=== PATIENT | female | born 1980 | race African-American/Black ===

== ENCOUNTER 2024-12-16 22:54 | Emergency (ER) | payer OTHER ==
--- OUTSIDE RECORDS SUMMARY | 2024-12-16 22:58 | XMS REPORT | Continuity of Care Document ---
Author Name Unknown Address [address] [facility] [address] [place] [address] [facility] [place] Address [address] [facility] [place] [address] Care Team Providers Care Business Banking Representative Name Role Phone PCP, PATIENT DOES NOT HAVE A Primary Care Physic shirin Unavailable JAMIE PRIETO Attending Clinician Unavailable JAMIE PRIETO Attending Clinician Unavailable Payers Payer Name Policy Type Policy Number Effective Date Expirati on Date Source AETNA POS/AETNA POS II [id number] 2024 00:00:00 Problems Condition Name Condition Details Condition Category Status Onset Date Resolution Date Last Treatment Date Treating Clinician Comments Source Polycystic ovary syndrome Polycystic Ovary Syndrome Problem Active 07-24 00:00: 00 [facility] 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 Hyperglyce vel Due to Type 2 Diabetes Mellitus Problem Active 07-24 00:00: 00 [facility] Morbid obesity Morbid Obesity Problem Active 07-24 00:00: 00 [facility] Anxiety Anxiety Problem Active 07-24 00:00: 00 [facility] Essential hypertensi on Essential Hypertensi on Problem Active 07-24 00:00: 00 [facility] Hypertensi ve disorder Hypertensi ve Disorder Problem Active 07-24 00:00: 00 [facility] Cyst of ovary Cyst of Ovary Problem Active 07-24 00:00: 00 [facility] Dysmenorrh ea Dysmenorrh ea Problem Active 07-24 00:00: 00 [facility] Heartburn Heartburn Problem Active 07-24 00:00: 00 [facility] Allergies, Adverse Reactions, Alerts Allergy Name Allergy Type Status Severity Reaction(s) Onset Date Inactive Date Treating Clinician Comments Source HYDROCHL OROTHIAZ JOSE DRUG INGREDI Active Unknown-Cmnt 07-23 00:00: 00 [facility] DAPAGLIF LOZIN DRUG INGREDI Active Unknown-Cmnt 07-23 00:00: 00 [facility] Medications Ordered Medication Name Filled Medication Name Start Date Stop Date Current Medication? Ordering Clinician Indication Dosage Frequency Signature (SIG) Comments Components Source amlodipine 10 mg tablet Take 1 tablet every day by oral route. amlodipine 10 mg tablet Take 1 tablet every day by oral route. No 1 Q1D amlodipine 10 mg tablet Take 1 tablet every day by oral route. [facility] Baby Aspirin 81 mg chewable tablet Chew 1 tablet every day by oral route. Baby Aspirin 81 mg chewable tablet Chew 1 tablet every day by oral route. No 1 Q1D Baby Aspirin 81 mg chewable tablet Chew 1 tablet every day by oral route. [facility] irbesartan 150 mg tablet Take 1 tablet every day by oral route. irbesartan 150 mg tablet Take 1 tablet every day by oral route. No 1 Q1D irbesartan 150 mg tablet Take 1 tablet every day by oral route. [facility] Ozempic Ozempic No Ozempic P [facility] Vitamin D3 Vitamin D3 No Vitamin D3 [facility] Zituvio 100 mg tablet Take 1 tablet every day by oral route. Zituvio 100 mg tablet Take 1 tablet every day by oral route. No 1 Q1D Zituvio 100 mg tablet Take 1 tablet every day by oral route. [facility] Vital Signs Vital Name Observation Time Observation Value Comments S ource BP Diastolic 2024-07-24 00:00:00 95 mm[Hg] [facility] Height 2024-07-24 00:00:00 63 [in_i] [facility] BMI (Body Mass Index) 2024-07-24 00:00:00 68.2 kg/m2 [facility] BP Systolic 2024-07-24 00:00:00 132 mm[Hg] [facility] Body Weight 2024-07-24 00:00:00 385 [lb_av] [facility] Procedures Procedure Date / Time Performed Performing Clinicia n Source US [facility]INAL 2024-08-08 [facility], screening, digital, bilateral 2024-07-24 00:00:00 [facility] Procedure on Knee 2006-02-11 00:00:00 [facility] Tonsillectomy 1995-02-11 00:00:00 [facility] Encounters Start Date/Time End Date/Time Encounter Type Admission Type Attending [facility] Care Facility Care Department Encounter ID Source 2024-08-08 00:00:00 2024-08-08 00:00:00 Marla Mayes PA: [address], [place] [id number] , Ph. [facility] GC_GCBZW_Kalyn alvarez Sal* [id number] [facility] 2024-08-07 00:00:00 2024-08-07 00:00:00 STEVE Barr: [address], [address], [place] [id number] , Ph. [facility] GC_GCBZW_Kalyn Huang* [id number] [facility] 2024-07-24 00:00:00 2024-07-24 00:00:00 STEVE Barr: [address], [place] [phone] , Ph. [facility] GC_GCBZW_Kalyn Huang* [id number] [facility] 2024-07-23 07:23:00 2024-07-23 07:56:00 Emergency X , [facility]IE [facility] ERT [id number] [facility] Results Test Description Test Time Test Comments Results Result Co mments Source [facility] MedicalInsulin [Units/volume] in Serum or [id number] 00:00:00* Test Item Value Reference Range Interpretation Comme nts insulin (test code = insulin) 54.2 uIU/mL 2.6-24.9 H [facility] Medicaligp, apt HPV,rfx 16/18,[id number] 00:00:00* Test Item Value Reference Range Interpretation Comme nts diagnosis: (test code = diagnosis:) COMMENT specimen adequacy: (test cod e = specimen adequacy:) COMMENT performed by: (test code = p erformed by:) COMMENT QC reviewed by: (test code = QC reviewed by:) COMMENT note: (test code = note:) COMMENT test methodology: (test code = test methodology:) COMMENT HPV aptima (test code = HPV aptima) NEGATIVE negative [facility]achomatis and Neisseria gonorrhoeae rRNA panel - Specimen by YOGESH with probe [id number] 00:00:00* Test Item Value Reference Range Interpretation Comme nts aptima combo 2 swab (CT) (te st code = aptima combo 2 swab (CT)) CT NEG negative aptima combo 2 swab (GC) (te st code = aptima combo 2 swab (GC)) GC NEG negative [facility] vaginal[facility] (swhl) ([id number]) 2024-07-28 00:00:00 * Test Item Value Reference Range Interpretation Comme nts trichomonas vaginalis swab ( test code = trichomonas vaginalis swab) TRICH NEG negative [facility] and total panel [Mass/volume] - Serum or Plasma 2024-07-25 00:00:00* Test Item Value Reference Range Interpretation Comme nts free testosterone (test code = free testosterone) 0.50 NG/dL 0.12-0.64 sex hormone binding globulin (test code = sex hormone binding globulin) 27.10 nmol/L 10.00-57.00 testosterone (test code = testosterone) 24.8 NG/dL 8.4-48.1 [facility] MedicalDehydroepiandrosterone sulfate (DHEA-S) [Mass/volume] in Serum or [id number] 00:00:00* Test Item Value Reference Range Interpretation Comme nts DHEA-S (test code = DHEA-S) 114.0 ug/dL 98.8-340.0 [facility]
[2024-12-17 00:03] LABS: Absolute Lymphocytes (CBC) 2.7 K/uL (0.7-4.9); Hematocrit 41.7 % (36.0-45.0); Hemoglobin 13.4 g/dL (12.0-15.0); MCH 27.5 pg (27.0-35.0); MCHC 32.3 g/dL (32.0-36.0); MCV 85.3 fL (80-100); MPV 8.9 fL (7.6-11.3); Nucleated RBC Absolute Count 0.0 (0-0); Nucleated Red Blood Cells % 0.2 % (0-0); RBC Red Blood Cell Count 4.88 M/uL (3.86-4.86); White Blood Count 7.10 thou/uL (4.3-10.9)
[2024-12-17 00:17] LABS: Anion Gap 10.3 mEq/L (5.0-15.0); BUN Blood Urea Nitrogen 13 mg/dL (7-18); Glucose Level 370 mg/dL (74-106); Potassium 4.3 mEq/L (3.5-5.1); Troponin High Sensitivity 8.9 pg/mL (<58.9)
[2024-12-17 00:18] LABS: NT PRO-BNP < 5 pg/mL (<125)
[2024-12-17 01:26] LABS: D-Dimer 0.969 FEUug/mL (0-0.500); PT Prothrombin Time 11.6 SECONDS (10-13.0); Protime INR 1.03
[2024-12-17] MEDS ORDERED: HYDROCODONE/APAP 5/325 MG TAB ONE (03:05)
--- NOTE | 2024-12-17 04:16 | ER ---
Nurse's Notes [facility] Name: Loren Herrera Age: 44 yrs Sex: Female : 1980 Arrival Date: 12/16/2024 Time: 22:54 Bed 16 Private MD: Diagnosis: Chest pain, unspecified Presentation: 12/16 23:00 Chief complaint: Patient states: I am having chest pain that started 1 week ago. It has jb4 gotten worse since. It starts in my back and radiates to the front. Coronavirus screen: At this time, the client does not indicate any symptoms associated with coronavirus-19. Ebola Screen: No symptoms or risks identified at this time. Initial Sepsis Screen: Does the patient meet any 2 criteria? No. Patient's initial sepsis screen is negative. Does the patient have a suspected source of infection? No. Patient's initial sepsis screen is negative. Risk Assessment: Do you want to hurt yourself or someone else? Patient reports no desire to harm self or others. Onset of symptoms was December 09, 2024. 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 - Infectious Disease History:: Denies. - Social history:: Smoking status: Patient denies any tobacco usage or history of. - Family history:: not pertinent. - Hospitalizations: : No recent hospitalization is reported. Screenin:40 [facility] ED Fall Risk Assessment (Adult) History of falling in the last 3 months, kj2 including since admission No falls in past 3 months (0 pts) Confusion or Disorientation No (0 pts) Intoxicated or Sedated No (0 pts) Impaired Gait No (0 pts) Mobility Assist Device Used No (0 pt) Altered Elimination No (0 pt) Score/Fall Risk Level 0 - 2 = Low Risk Maintained a safe environment, Hourly rounding (assess needs \T\ fall precautionary measures) done. Abuse screen: Denies threats or abuse. Denies injuries from another. Nutritional screening: No deficits noted. Tuberculosis screening: No symptoms or risk factors identified. Assessment: 23:40 General: Appears in no apparent distress. Behavior is cooperative. Pain: Complains of kj2 pain in chest Pain radiates to from and to her back Pain began 1 week ago. Neuro: Level of Consciousness is awake, alert, obeys commands, Oriented to person, place, time, situation. Cardiovascular: Patient's skin is warm and dry. Chest pain began 1 week ago. 12/17 00:00 Reassessment: Patient is alert, oriented x 3, equal unlabored respirations, skin tb4 warm/dry/pink. General: Appears in no apparent distress. Behavior is calm, cooperative. Pain: Denies pain. Neuro: Level of Consciousness is awake, alert, obeys commands, Oriented to person, place, time, situation, Testing Shaking Shipping are equal bilaterally Moves all extremities. Full function Gait is steady, Speech is normal, Facial symmetry appears normal. Cardiovascular: Capillary refill < 3 seconds is brisk in bilateral fingers Chest pain is denied Patient states at this time she has no pain and when she does it only comes when she is laying on her right side and it radiates to the middle of her back. Respiratory: Airway is patent Trachea midline Respiratory effort is even, unlabored, Respiratory pattern is regular, symmetrical. Vital Signs: 12/16 23:00 BP 130 / 96; Pulse 80; Resp 16; Temp 98.1(O); Pulse Ox 96% on R/A; Weight 170.1 kg (R); jb4 Height 5 ft. 3 in. ; Pain 9/10; 23:35 Weight 179.62 kg (M); jb4 12/17 00:10 BP 136 / 75; Pulse 83; Resp 18; Pulse Ox 99% on R/A; Weight 170.1 kg; Height 5 ft. 3 tb4 in. ; Pain 0/10; 01:30 BP 115 / 59; Pulse 85; Resp 18; Pulse Ox 100% on R/A; Pain 0/10; tb4 02:30 BP 117 / 75; Pulse 64; Resp 18; Pulse Ox 97% on R/A; Pain 6/10; tb4 03:45 BP 105 / 62; Pulse 78; Resp 20; Pulse Ox 97% on R/A; Pain 0/10; tb4 00:10 Body Mass Index 66.43 (170.10 kg, 160.02 cm) tb4 12/16 23:00 Pain Scale: Adult jb4 12/17 00:10 Pain Scale: Adult tb4 01:30 Pain Scale: Adult tb4 02:30 Pain Scale: Adult tb4 03:45 Pain Scale: Adult tb4 ED Course: 12/16 22:56 Patient arrived in ED. jj6 22:59 Gerber Narayan MD is Attending Physician. rn 23:03 Triage completed. jb4 23:05 Arm band placed on right wrist. jb4 23:17 Malissa Rodriguez, HARPER is Primary Nurse. kj2 23:31 XRAY Chest (1 view) In Process Unspecified. EDMS 23:40 Patient has correct armband on for positive identification. Bed in low position. Call kj2 light in reach. Provided Education on: call light. Client placed on continuous cardiac and pulse oximetry monitoring. NIBP monitoring applied. 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 Pulse ox on. NIBP on. 23:51 Inserted saline lock: 20 gauge in right forearm, using aseptic technique. Blood kj2 collected. Flushed with 10 mL NS. 12/17 00:00 Patient maintains SpO2 saturation greater than 95% on room air. kj2 00:01 EKG done, by ED staff, reviewed by Gerber Narayan MD. hw 02:52 CT Chest For PE Angio In Process Unspecified. EDMS 03:45 No provider procedures requiring assistance completed. IV discontinued, intact, tb4 bleeding controlled, No redness/swelling at site. Pressure dressing applied. Administered Medications: 03:09 Drug: HYDROcodone-acetaminophen PO 5 mg-325 mg 1 tabs PO once Route: PO; tb4 04:38 Follow up: Response: No adverse reaction; Pain is decreased; RASS: Alert and Calm (0) tb4 Medication: 00:10 VIS not applicable for this client. tb4 Outcome: 04:16 Discharge ordered by . rn 04:36 Discharged to home ambulatory, tb4 04:36 Condition: stable 04:36 Discharge instructions given to patient, Instructed on discharge instructions, follow up and referral plans. Demonstrated understanding of instructions, follow-up care, 04:38 Patient left the ED. tb4 Signatures: Dispatcher [employer] EDMS Gerber Narayan MD MD rn Bryson, James, RN RN jb4 Dara Weinberg jj6 Malissa Rodriguez, RN RN kj2 Jennie Andersen Terri, RN RN tb4 Corrections: (The following items were deleted from the chart) 12/16 23:05 23:00 Pulse 80bpm; Resp 16bpm; Pulse Ox 96% RA; Temp 98.1F Oral; 170.1 kg Reported; jb4 Height 5 ft. 3 in.; BMI: 66.4; Pain 9/10, Adult; jb4 23:05 23:03 Allergies: No Known Allergies; jb4 jb4
--- NOTE | 2024-12-17 04:16 | EDPHYS ---
Physician Documentation [facility] Name: Loren Herrera Age: 44 yrs Sex: Female : 1980 Arrival Date: 12/16/2024 Time: 22:54 Bed 16 Private MD: ED Physician Gerber Narayan HPI: 12/16 23:54 This 44 yrs old Black Female presents to ER via Ambulatory with complaints of Chest rn Pain, Shortness Of Breath. 23:54 Patient reports chest pain and back pain and shortness of breath. Has been happening rn for 1 week, intermittent. No history of DVT or PE. Has a family history of idiopathic cardiomyopathy. Patient denies swelling. No abdominal pain. No hemoptysis. Patient reports pain is positional and worse when she lays on 1 side compared to the other. Patient has recently started working out and thinks could be strain.. 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 - Infectious Disease History:: Denies. - Social history:: Smoking status: Patient denies any tobacco usage or history of. - Family history:: not pertinent. - Hospitalizations: : No recent hospitalization is reported. ROS: 23:54 Constitutional: Negative for fever, chills, and weight loss, Cardiovascular: Positive rn for chest pain Respiratory: Positive for shortness of breath Abdomen/GI: Negative for abdominal pain, nausea, vomiting, diarrhea, and constipation, MS/Extremity: Negative for injury and deformity, Skin: Negative for injury, rash, and discoloration, Neuro: Negative for headache, weakness, numbness, tingling, and seizure, Exam: 23:54 Constitutional: This is a well developed, well nourished patient who is awake, alert, rn and in no acute distress. Head/Face: Normocephalic, atraumatic. Cardiovascular: Regular rate and rhythm. No pulse deficits. Respiratory: Speaking full sentences, unlabored. No increased work of breathing, no retractions or nasal flaring. Abdomen/GI: Soft, non-tender MS/ Extremity: Pulses equal, no cyanosis. Neurovascular intact. Full, normal range of motion. Equal circumference. Neuro: Awake and alert, GCS 15 12/17 00:14 ECG was reviewed by the Attending Physician. rn Vital Signs: 12/16 23:00 BP 130 / 96; Pulse 80; Resp 16; Temp 98.1(O); Pulse Ox 96% on R/A; Weight 170.1 kg (R); jb4 Height 5 ft. 3 in. ; Pain 9/10; 23:35 Weight 179.62 kg (M); jb4 12/17 00:10 BP 136 / 75; Pulse 83; Resp 18; Pulse Ox 99% on R/A; Weight 170.1 kg; Height 5 ft. 3 tb4 in. ; Pain 0/10; 01:30 BP 115 / 59; Pulse 85; Resp 18; Pulse Ox 100% on R/A; Pain 0/10; tb4 02:30 BP 117 / 75; Pulse 64; Resp 18; Pulse Ox 97% on R/A; Pain 6/10; tb4 03:45 BP 105 / 62; Pulse 78; Resp 20; Pulse Ox 97% on R/A; Pain 0/10; tb4 00:10 Body Mass Index 66.43 (170.10 kg, 160.02 cm) [facility] 12/16 23:00 Pain Scale: Adult 4 12/17 00:10 Pain Scale: Adult tb4 01:30 Pain Scale: Adult tb4 02:30 Pain Scale: Adult tb4 03:45 Pain Scale: Adult tb4 MDM: 12/16 22:59 Medical Screening Exam initiated rn 12/17 04:15 Differential diagnosis: acute myocardial infarction, acute pericarditis, anxiety, rn coronary artery disease chest wall pain, costochondritis, esophagitis, gastritis, pleurisy, pneumonia, pneumothorax, pulmonary embolus. HEART Score: History: Slightly Suspicious (0), ECG: Normal (0), Age: > 45 and < 65 years (1), Risk Factors: 1 or 2 risk factors (1), Troponin: < or = 1 x Normal Limit (0), Total Score = 2. Data reviewed: vital signs, nurses notes, lab test result(s), EKG, radiologic studies, CT scan, plain films, and as a result, I will discharge patient. Independent interpretation of the following test(s) in the Emergency Department EKG: See my EKG interpretation above X-Ray: My interpretation is Chest x-ray images negative for pneumonia or pneumothorax per my interpretation. Counseling: I had a detailed discussion with the patient and/or guardian regarding the historical points, exam findings, and any diagnostic results supporting the discharge/admit diagnosis, lab results, radiology results, the need for outpatient follow up, to return to the emergency department if symptoms worsen or persist or if there are any questions or concerns that arise at home. Special discussion: Based on the patient's history, exam, and Dx evaluation, there is no indication for emergent intervention or inpatient Tx. It is understood by the patient/guardian that if the Sx's persist or worsen they need to return immediately for re-evaluation. I discussed with the patient/guardian in detail that at this point there is no indication for admission to the hospital. It is understood, however, that if the symptoms persist or worsen the patient needs to return immediately for re-evaluation. Based on the history and exam findings, there is no indication for further emergent testing or inpatient evaluation. I discussed with the patient/guardian the need to see the primary care provider for further evaluation of the symptoms. 04:15 ED course: I have personally reviewed all of the results, including but not limited to rn blood tests and imaging deemed necessary to safely discharge this patient at this time. All results given to and printed out for patient. I personally went over all the results with the patient and answered all questions. Patient will follow-up with PCP and or specialist as discussed. Return precautions given and understood.. 12/16 23:00 Order name: Basic Metabolic Panel; Complete Time: rn 12/16 23:00 Order name: CBC with Diff; Complete Time: rn 12/16 23:00 Order name: D-Dimer; Complete Time: rn 12/16 23:00 Order name: NT PRO-BNP; Complete Time: rn 12/16 23:00 Order name: PT-INR; Complete Time: rn 12/16 23:00 Order name: Troponin HS; Complete Time: rn 12/16 23:00 Order name: XRAY Chest (1 view) rn 12/17 01:47 Order name: CT Chest For PE Angio rn 12/16 23:00 Order name: EKG; Complete Time: 23:01 rn 12/16 23:00 Order name: Cardiac monitoring; Complete Time: :57 rn 12/16 23:00 Order name: EKG - Nurse/Tech; Complete Time: :57 rn 12/16 23:00 Order name: IV Saline Lock; Complete Time: 00:06 rn 12/16 23:00 Order name: Labs collected and sent; Complete Time: 00: rn 12/16 23:00 Order name: O2 Per Protocol; Complete Time: 00: rn 12/16 23:00 Order name: O2 Sat Monitoring; Complete Time: 00: rn EC:14 Rate is 88 beats/min. Rhythm is regular. QRS [place] is Normal. FL interval is normal. QRS rn interval is normal. QT interval is normal. No Q waves. T waves are Normal. No ST changes noted. Clinical impression: NSR w/ Non-specific ST/T Changes. Interpreted by me. Reviewed by me. Administered Medications: 03:09 Drug: HYDROcodone-acetaminophen PO 5 mg-325 mg 1 tabs PO once Route: PO; tb4 04:38 Follow up: Response: No adverse reaction; Pain is decreased; RASS: Alert and Calm (0) tb4 Disposition Summary: 12/17/24 04:16 Discharge Ordered Notes: Location: Home rn Problem: an ongoing problem rn Symptoms: have improved rn Condition: Stable rn Diagnosis - Chest pain, unspecified rn Followup: rn - With: Private Physician - When: As needed - Reason: Recheck today's complaints, Re-evaluation by your physician Discharge Instructions: - Discharge Summary Sheet rn - Nonspecific Chest Pain, Adult rn Forms: - Medication Reconciliation Form rn - Antibiotic technical internship - Prescription Opioid Use rn - Patient Portal Instructions rn - Leadership Thank You Letter rn Signatures: Dispatcher [employer] Gerber Vaca MD MD rn Bryson, James, RN RN jb4 Ria Christianson RN RN tb4 Corrections: (The following items were deleted from the chart) 12/16 23: 23:03 Allergies: No Known Allergies; jbMaru jbMaru 23:56 23:54 This 44 yrs old Black Female presents to ER via Ambulatory with complaints of rn Chest Pain, Shortness Of Breath. rn
--- NOTE | 2024-12-17 04:34 | RAD REPORT ---
INDICATION: Chest pain; Dyspnea COMPARISON: No existing relevant imaging studies are available TECHNIQUE: CT of the chest was performed after the intravenous contrast administration in the pulmonary arterial phase. Multiplanar reconstructions were provided. Maximum intensity projections were also obtained. Dose reduction techniques were utilized for this exam including automated exposure control, adjustmen ts to mA and/or kV according to patient's size, and the use of iterative reconstruction techniques. FINDINGS: PULMONARY ARTERIES: Satisfactory opacification of the pulmonary arterial tree was obtained with no ev idence of pulmonary thromboembolism. HEART: Normal in size. No coronary arterial calcifications. No pericardial effusion or thickening. AORTA: Thoracic aorta normal in course and caliber. ADENOPATHY: No pathologic intrathoracic or axillary adenopathy. LUNGS: Lungs are symmetrically aerated without focal consolidation, suspicious pulmonary nodule, pleu ral effusion, or pneumothorax. UPPER ABDOMEN: Hepatic steatosis. BONES: No acute bony abnormality. Multilevel degenerative changes throughout the spine. IMPRESSION: Negative for acute pulmonary thromboembolism or other acute intrathoracic abnormality. Electronically signed by: Mathew Dang DO 12/17/2024 03:42 AM [facility] NR Due to temporary technical issues with the PACS/Pharmap[employer] reporting system, reports are being ángel d by the in-house radiologist without review as a courtesy to ensure prompt reporting the interpreting radiologist is fully responsible for the content of the report. Transcribed Date/Time: 12/17/2024 4:33 AM
[2024-12-17 05:04] VITALS: TEMP 98.1
[2024-12-17 05:22] VITALS: O2SAT 97
[2024-12-17 05:23] VITALS: BP 105/62
--- NOTE | 2024-12-17 06:02 | RAD REPORT ---
EXAM: Chest Single View CLINICAL INDICATION: 44-year-old female with chest pain and dyspnea. TECHNIQUE: Single view, AP portable chest was obtained. COMPARISON: None. FINDINGS: Unremarkable cardiac and mediastinal silhouette. Heart size is normal. Lungs are clear without focal opacity, pneumothorax or pleural effusions. The visualized bones are within normal limits. IMPRESSION: No acute pulmonary abnormalities. Electronically signed by: Gin Hernandez MD 12/16/2024 11:56 PM CDT RP Due to temporary technical issues with the PACS/[address] reporting system, reports are being ángel d by the in-house radiologist without review as a courtesy to ensure prompt reporting the interpreting radiologist is fully responsible for the content of the report. Transcribed Date/Time: 12/17/2024 6:02 AM
== END 2024-12-17 04:38 | disposition home or self-care (01) ==
LOC: ER 22:54
DX: R07.9 Chest pain, unspecified (principal); I10 Essential (primary) hypertension; E11.9 Type 2 diabetes mellitus without complications; Z88.8 Allergy status to other drugs, medicaments and biological substances
CPT/HCPCS: 93005; 85025; 80048; 36415; 85610; 85379; 84484; 83880; 71275; 71045; 99285; Q9967